=== PATIENT | female | born 1970 | race American Indian/Alaskan Native ===

== ENCOUNTER 2021-02-08 11:22 | Inpatient (IN) | payer BC ==
[2021-02-08] MEDS ORDERED: METOCLOPRAMIDE 10 MG/2 ML INJ IV ONE ×2 (11:51→16:00)
[2021-02-08] MEDS ORDERED: SODIUM CHLORIDE 0.9% 500 ML 500 ML IV ONE ×3 (11:51→20:58)
--- NOTE | 2021-02-08 11:53 | Emergency Department Report ---
HPI - General Chief Complaint: Nausea/Vomiting/Diarrhea Time Seen by Provider: 02/08/21 11:31 - HPI HPI: 50-year-old female with history of hypertension on losartan and DM2 on Metformin presents complaining of 2 days of symptoms including intermittent global headache with associated lightheadedness and nausea as well as shortness of breath with exertion. Patient states that for the last 2 days she has been having headaches which come on gradually over the course of a few hours and then gradually disappear. She describes the headache as global pressure-like. She denies any room spinning dizziness. However she states that she feels lightheaded and nauseated and had 2 episodes of vomiting last night. Although she has not vomited today, she says she has not had much to eat or drink today because she fears vomiting and feels nauseated. Over the same period of time she has noticed that she feels more short of breath with exertion. She denies any associated chest pain, cough, abdominal pain, dysuria, discharge, vaginal bleeding, back pain, vision change, neck pain, fever/chills, or any other associated symptoms. She has not checked her blood sugar today. She states that for the past month or so she has had elevated blood pressure but cannot quantify. There are no known aggravating or alleviating factors. She did take her medications today. She is fully vaccinated against COVID-19. ED Past Medical Hx - Past Medical History Previous Medical History?: No Hx Hypertension: Yes Hx Diabetes: Yes - Surgical History Past Surgical History?: No ED Review of Systems ROS: Stated complaint: HEADACHE,NAUSEA,DIZZY Other details as noted in HPI Constitutional: other (tiredness, lightheadedness). denies: chills, fever Eyes: denies: eye pain, vision change Respiratory: SOB with exertion. denies: cough Cardiovascular: denies: chest pain, palpitations Gastrointestinal: nausea, vomiting. denies: abdominal pain, diarrhea, melena, hematochezia Genitourinary: denies: dysuria, frequency, hematuria, discharge Musculoskeletal: denies: back pain, joint swelling Skin: denies: rash, lesions Neurological: headache. denies: weakness, numbness, paresthesias, abnormal gait, vertigo Psychiatric: denies: anxiety, depression Hematological/Lymphatic: denies: easy bleeding Physical Exam - Physical Exam Vital Signs: Vital Signs 02/08/21 11:25 Temperature 98.5 F Pulse Rate 75 Respiratory 16 Rate Blood Pressure 178/85 [Left] O2 Sat by Pulse 98 Oximetry Physical Exam: GENERAL: Well developed and well nourished. No acute distress HEAD: Normocephalic. No obvious signs of trauma. ENT: Slightly dry mucous membranes. EYES: Extraocular movements are intact. Pupils are equal round and reactive to light bilaterally NECK: Supple. Full ROM is intact. Trachea is midline. LUNGS: Nonlabored breathing. Equal chest rise bilaterally. Clear to auscultation bilaterally. CARDIOVASCULAR: Regular rate and rhythm. No murmurs or rubs. VASCULAR: Cap refill < 2 seconds. 2+ pitting edema of the bilateral lower extremities. ABDOMEN: Abdomen is soft and nondistended. There is no significant tenderness, guarding or rebound. SKIN: Skin is warm and dry NEURO: Patient is awake, alert, and oriented. food adviser II-XII grossly intact. No focal deficits. Normal motor and sensory exam throughout. Normal speech. MUSCULOSKELETAL: No obvious deformities. No significant tenderness. Normal ROM throughout. ED Course Vital Signs 02/08/21 11:25 Temperature 98.5 F Pulse Rate 75 Respiratory 16 Rate Blood Pressure 178/85 [Left] O2 Sat by Pulse 98 Oximetry ED Medical Decision Making - Lab Data Result diagrams: 02/08/21 13:09 02/08/21 13:09 Lab Results 02/08/21 02/08/21 02/08/21 Range/Units 11:51 11:56 13:09 WBC 12.1 H (4.5-11.0) K/mm3 RBC 2.52 L (3.65-5.03) M/mm3 Hgb 7.1 L (10.1-14.3) gm/dl Hct 20.0 L (30.3-42.9) % MCV 79 (79-97) fl MCH 28 (28-32) pg MCHC 36 H (30-34) % RDW 18.0 H (13.2-15.2) % Plt Count 499 H (140-440) K/mm3 Lymph % (Auto) 29.9 (13.4-35.0) % [place] % (Auto) 8.6 H (0.0-7.3) % Eos % (Auto) 1.4 (0.0-4.3) % Baso % (Auto) Temporary Staff Accountant Lymph # (Auto) 3.5 (1.2-5.4) K/mm3 [place] # (Auto) 1.0 H (0.0-0.8) K/mm3 Eos # (Auto) 0.2 (0.0-0.4) K/mm3 Baso # (Auto) 0.0 (0.0-0.1) K/mm3 Seg Neutrophils % 59.7 (40.0-70.0) % Seg Neutrophils # 7.1 (1.8-7.7) K/mm3 PT (12.2-14.9) Sec. INR (0.87-1.13) APTT (24.2-36.6) Sec. Sodium (137-145) mmol/L Potassium (3.6-5.0) mmol/L Chloride (98-107) mmol/L Carbon Dioxide (22-30) mmol/L Anion Gap mmol/L BUN (7-17) mg/dL Creatinine (0.6-1.2) mg/dL Estimated GFR ml/min BUN/Creatinine Ratio % Glucose (65-100) mg/dL POC Glucose 110 H (70-105) mg/dL Calcium (8.4-10.2) mg/dL Magnesium (1.7-2.3) mg/dL Total Bilirubin (0.1-1.2) mg/dL Direct Bilirubin (0-0.2) mg/dL Indirect Bilirubin mg/dL AST (5-40) units/L ALT (7-56) units/L Alkaline Phosphatase (35-129) units/L Troponin T (0.00-0.029) ng/mL NT-Pro-B Natriuret Pep (0-900) pg/mL Total Protein (6.3-8.2) g/dL Albumin (3.9-5) g/dL Albumin/Globulin Ratio % HCG, Qual (Negative) Urine Color Straw (Yellow) Urine Turbidity Clear (Clear) Urine pH 7.0 (5.0-7.0) Ur Specific [place] 1.008 (1.003-1.030) Urine Protein 100 mg/dl (Negative) mg/dL Urine Glucose (UA) Neg (Negative) mg/dL Urine Ketones Neg (Negative) mg/dL Urine Blood Mod (Negative) Urine Nitrite Neg (Negative) Urine Bilirubin Neg (Negative) Urine Urobilinogen < 2.0 (<2.0) mg/dL Ur Leukocyte Esterase Tr (Negative) Urine WBC (Auto) 24.0 H (0.0-6.0) /HPF Urine RBC (Auto) 1.0 (0.0-6.0) /HPF U Epithel Cells (Auto) < 1.0 (0-13.0) /HPF Blood Type Crossmatch 02/08/21 02/08/21 02/08/21 Range/Units 13:09 13:09 13:09 WBC (4.5-11.0) K/mm3 RBC (3.65-5.03) M/mm3 Hgb (10.1-14.3) gm/dl Hct (30.3-42.9) % MCV (79-97) fl MCH (28-32) pg MCHC (30-34) % RDW (13.2-15.2) % Plt Count (140-440) K/mm3 Lymph % (Auto) (13.4-35.0) % [place] % (Auto) (0.0-7.3) % Eos % (Auto) (0.0-4.3) % Baso % (Auto) Lymph # (Auto) (1.2-5.4) K/mm3 [place] # (Auto) (0.0-0.8) K/mm3 Eos # (Auto) (0.0-0.4) K/mm3 Baso # (Auto) (0.0-0.1) K/mm3 Seg Neutrophils % (40.0-70.0) % Seg Neutrophils # (1.8-7.7) K/mm3 PT 12.8 (12.2-14.9) Sec. INR 0.91 (0.87-1.13) APTT 25.9 (24.2-36.6) Sec. Sodium 138 (137-145) mmol/L Potassium 4.1 (3.6-5.0) mmol/L Chloride 101.4 (98-107) mmol/L Carbon Dioxide 23 (22-30) mmol/L Anion Gap 18 mmol/L BUN 11 (7-17) mg/dL Creatinine 0.7 (0.6-1.2) mg/dL Estimated GFR > 60 ml/min BUN/Creatinine Ratio 16 % Glucose 85 (65-100) mg/dL POC Glucose (70-105) mg/dL Calcium 9.5 (8.4-10.2) mg/dL Magnesium 2.00 (1.7-2.3) mg/dL Total Bilirubin 0.50 (0.1-1.2) mg/dL Direct Bilirubin < 0.2 (0-0.2) mg/dL Indirect Bilirubin 0.3 mg/dL AST 25 (5-40) units/L ALT 19 (7-56) units/L Alkaline Phosphatase 56 (35-129) units/L Troponin T < 0.010 (0.00-0.029) ng/mL NT-Pro-B Natriuret Pep 146.6 (0-900) pg/mL Total Protein 8.8 H (6.3-8.2) g/dL Albumin 3.6 L (3.9-5) g/dL Albumin/Globulin Ratio 0.7 % HCG, Qual Negative (Negative) Urine Color (Yellow) Urine Turbidity (Clear) Urine pH (5.0-7.0) Ur Specific [place] (1.003-1.030) Urine Protein (Negative) mg/dL Urine Glucose (UA) (Negative) mg/dL Urine Ketones (Negative) mg/dL Urine Blood (Negative) Urine Nitrite (Negative) Urine Bilirubin (Negative) Urine Urobilinogen (<2.0) mg/dL Ur Leukocyte Esterase (Negative) Urine WBC (Auto) (0.0-6.0) /HPF Urine RBC (Auto) (0.0-6.0) /HPF U Epithel Cells (Auto) (0-13.0) /HPF Blood Type Crossmatch 02/08/21 02/08/21 Range/Units 14:55 14:55 WBC (4.5-11.0) K/mm3 RBC (3.65-5.03) M/mm3 Hgb (10.1-14.3) gm/dl Hct (30.3-42.9) % MCV (79-97) fl MCH (28-32) pg MCHC (30-34) % RDW (13.2-15.2) % Plt Count (140-440) K/mm3 Lymph % (Auto) (13.4-35.0) % [place] % (Auto) (0.0-7.3) % Eos % (Auto) (0.0-4.3) % Baso % (Auto) Lymph # (Auto) (1.2-5.4) K/mm3 [place] # (Auto) (0.0-0.8) K/mm3 Eos # (Auto) (0.0-0.4) K/mm3 Baso # (Auto) (0.0-0.1) K/mm3 Seg Neutrophils % (40.0-70.0) % Seg Neutrophils # (1.8-7.7) K/mm3 PT (12.2-14.9) Sec. INR (0.87-1.13) APTT (24.2-36.6) Sec. Sodium (137-145) mmol/L Potassium (3.6-5.0) mmol/L Chloride (98-107) mmol/L Carbon Dioxide (22-30) mmol/L Anion Gap mmol/L BUN (7-17) mg/dL Creatinine (0.6-1.2) mg/dL Estimated GFR ml/min BUN/Creatinine Ratio % Glucose (65-100) mg/dL POC Glucose (70-105) mg/dL Calcium (8.4-10.2) mg/dL Magnesium (1.7-2.3) mg/dL Total Bilirubin (0.1-1.2) mg/dL Direct Bilirubin (0-0.2) mg/dL Indirect Bilirubin mg/dL AST (5-40) units/L ALT (7-56) units/L Alkaline Phosphatase (35-129) units/L Troponin T < 0.010 (0.00-0.029) ng/mL NT-Pro-B Natriuret Pep (0-900) pg/mL Total Protein (6.3-8.2) g/dL Albumin (3.9-5) g/dL Albumin/Globulin Ratio % HCG, Qual (Negative) Urine Color (Yellow) Urine Turbidity (Clear) Urine pH (5.0-7.0) Ur Specific [place] (1.003-1.030) Urine Protein (Negative) mg/dL Urine Glucose (UA) (Negative) mg/dL Urine Ketones (Negative) mg/dL Urine Blood (Negative) Urine Nitrite (Negative) Urine Bilirubin (Negative) Urine Urobilinogen (<2.0) mg/dL Ur Leukocyte Esterase (Negative) Urine WBC (Auto) (0.0-6.0) /HPF Urine RBC (Auto) (0.0-6.0) /HPF U Epithel Cells (Auto) (0-13.0) /HPF Blood Type B POSITIVE Crossmatch See Detail - EKG Data -: EKG Interpreted by Sd - EKG Data 02/08/21 19:36 Normal sinus rhythm. Normal axis. Normal interval. No ectopy. LVH associated changes. No significant ST segment or T wave abnormalities. - Medical Decision Making 50-year-old female with history of hypertension diabetes presents complaining of 2 days of intermittent global headache as well as lightheadedness, nausea with occasional vomiting. Headache has been gradual in onset and there are no red flag signs/symptoms. She is also had shortness of breath with exertion. Initial assessment she is afebrile and with normal vitals with the exception of elevated blood pressure of 178/85. Physical examination reveals dry mucous membranes. She has a nonfocal neurologic exam. Lungs are clear to auscultation. Heart sounds are normal. She has 2+ pitting edema of the bilateral lower extremities. She is vaccinated against COVID-19. The patient reports that she feels very nauseated right now and has a headache. Given that the patient is female, has diabetes, and is presenting with atypical symptoms including shortness of breath with exertion and lightheadedness, we will perform ACS work-up with full set of labs, EKG, and chest x-ray. In addition, given the that the patient has a headache with associated nausea/vomiting which is new and not typical for the patient we will perform CT of the head to assess for evidence of intracranial hemorrhage, mass, infarct, or any other intra cranial abnormalities. We will plan to give 1 L of IV fluids, Reglan, and then Toradol if CT of the head is negative. We will continue to monitor the patient's blood pressure and determine need for antihypertensives should her blood pressure not decreased with relief of her symptoms. Chest x-ray is clear. CT of the head reveals no acute abnormalities. Labs reveal several abnormalities including white blood cell count of 12.1, but notably with hemoglobin of 7.1. Platelets are elevated at 499. Given that all cell lines are elevated except for hemoglobin and the patient has signs of dehydration, she may be hemoconcentrated with true hemoglobin being lower than this value. We will not give Toradol given we do not currently know the source of bleeding. Kidney function is normal and there are no significant electrolyte abnormalities. Troponin is negative. BNP is negative. Urinalysis does show evidence of urinary tract infection. Urine culture has been sent. I have ordered 1 dose of IV ceftriaxone. When I went to reevaluate the patient at 1:45 PM she states that her symptoms are unchanged but she refused the Reglan. She states that she does not like taking medications. When I discussed the results of her labs showing severe anemia she denies any history of anemia but states that that would explain why she has felt extremely tired for the past few days. When asked about possible sources of bleeding including melena/hematochezia, the patient denies but states that she did have some dark stool 1 time approximately week ago. Rectal exam was performed with nurse present as a hamper maker machine and revealed rectal vault with out significant stool present but with enough to perform Hemoccult which was negative. Given that I feel the patient's symptoms represent symptomatic anemia, I have ordered 1 unit of PRBCs. The patient states that because her symptoms have continued she will now accept the medication. I have ordered Reglan and Benadryl. The patient 's blood pressure remains significantly elevated in the 180s systolic. I have ordered IV labetalol. The patient's blood pressure did not improve significantly after labetalol and therefore I have ordered further IV hydralazine. She has intractable hypertension symptoms which could represent hypertensive emergency. I discussed with the patient the need for admission for further work-up and management given that she has several ongoing medical issues which require further attention. The patient expressed understanding agreement with this plan of care. 4:58 PM I spoke with Dr. Rahman, the on-call hospitalist regarding the case. He accepts the patient for admission and will assume care. Critical Care Time: Yes Critical care time in (mins) excluding proc time.: 40 Critical care attestation.: If time is entered above; I have spent that time in minutes in the direct care of this critically ill patient, excluding procedure time. Critical care time was spent in the evaluation/assessment, work-up, and management of symptomatic anemia requiring transfusion of blood, hypertensive emergency requiring multiple IV antihypertensives, as well as multiple reevaluations and reassessments. ED Disposition Clinical Impression: Symptomatic anemia, Hypertensive emergency, Intractable headache, Nausea & vomiting, Dehydration, Urinary tract infection Disposition: 09 ADMITTED INPATIENT Is pt being admited?: Yes Condition: Fair HEART Score - HEART Score History: Moderately suspicious EKG: Non-specific Age: 45-65 Risk factors: 1-2 risk factors Troponin: < normal limit HEART Score: 4
--- NOTE | 2021-02-08 12:26 | XRay Report ---
CHEST 2 VIEWS INDICATION / CLINICAL INFORMATION: SOB. COMPARISON: None available. FINDINGS: SUPPORT DEVICES: None. HEART / MEDIASTINUM: Heart is upper normal size. LUNGS / PLEURA: No significant pulmonary or pleural abnormality. No pneumothorax. ADDITIONAL FINDINGS: No significant additional findings. IMPRESSION: 1. No acute findings. Signer Name: Orville Gutierrez MD Signed: 02/08/2021 12:21 PM Workstation Name: [id number]
--- NOTE | 2021-02-08 13:01 | Cat Scan Report ---
CT head/brain wo con INDICATION: New headache with nausea. TECHNIQUE: All CT scans at this location are performed using CT dose reduction for ALARA by means of automated e xposure control. COMPARISON: None available. FINDINGS: There is no evidence of hemorrhage, hydrocephalus, brain edema, or mass effect/mass lesion. There is overall normal brain formation and brain volume for the patient's age. Ventricular and cisternal/sulc al size is normal for age. The included paranasal sinuses and mastoid air cells are clear. The orbits appear unremarkable. IMPRESSION: 1. No acute intracranial abnormality. Signer Name: Abhijeet Corral MD Signed: 02/08/2021 12:57 PM Workstation Name: [id number]
[2021-02-08 13:12] LABS: Bilirubin,Urine NEG (Negative); Color,Urine Straw (Yellow); Urobilinogen,Urine < 2.0 mg/dL (<2.0)
[2021-02-08 13:33] LABS: Blood,Urine MOD (Negative)
[2021-02-08 13:49] LABS: Hemoglobin 7.1 gm/dl (10.1-14.3); Mean Corpuscular HGB Conc 36 % (30-34); Mean Corpuscular Volume 79 fl (79-97); Platelet Count 499 K/mm3 (140-440); Red Blood Count 2.52 M/mm3 (3.65-5.03)
[2021-02-08 13:55] LABS: Eosinophils # (Auto) 0.2 K/mm3 (0.0-0.4); Eosinophils % (Auto) 1.4 % (0.0-4.3); Lymphocytes # (Auto) 3.5 K/mm3 (1.2-5.4); Lymphocytes % (Auto) 29.9 % (13.4-35.0); Monocytes % (Auto) 8.6 % (0.0-7.3)
[2021-02-08 13:59] LABS: INR 0.91 (0.87-1.13)
[2021-02-08 14:00] LABS: Partial Thromboplastin Time 25.9 Sec. (24.2-36.6)
[2021-02-08] MEDS ORDERED: cefTRIAXone/NS 1 GM/50 ML 1 GM/50 ML BAG IV ONE (14:13)
[2021-02-08 14:15] LABS: Alanine Aminotransferase 19 units/L (7-56); Albumin 3.6 g/dL (3.9-5); Blood Urea Nitrogen 11 mg/dL (7-17); Calcium 9.5 mg/dL (8.4-10.2); Hemolysis Index 50
[2021-02-08 14:20] LABS: BUN/Creatinine Ratio 16; Bilirubin,Direct < 0.2 mg/dL (0-0.2)
[2021-02-08] MEDS ORDERED: hydrALAZINE 20 MG/1 ML INJ IV ONE (16:00)
[2021-02-08] MEDS ORDERED: diphenhydrAMINE 50 MG/ML VIAL IV ONE (16:00)
[2021-02-08] MEDS ORDERED: METOCLOPRAMIDE 10 MG/2 ML INJ IV PRN (17:13)
[2021-02-08] MEDS ORDERED: MORPHINE 2 MG/1 ML INJ IV PRN (17:13)
[2021-02-08] MEDS ORDERED: ACETAMINOPHEN 325 MG TAB PO PRN ×2 (17:13→20:57)
[2021-02-08] MEDS ORDERED: ONDANSETRON 4 MG/2 ML INJ IV PRN ×2 (17:13→20:57)
[2021-02-08] MEDS ORDERED: HYDROmorphone 1 MG/1 ML INJ IV PRN (17:13)
--- NOTE | 2021-02-08 17:13 | History and Physical Report ---
History of Present Illness Date of examination: 02/08/21 Date of admission: 02/08/2021 Chief complaint: Feeling weak and lightheaded 1 week History of present illness: 50-year-old female with history of hypertension on losartan and DM2 on Metformin presents complaining of 2 days of symptoms including intermittent global headache with associated lightheadedness and nausea as well as shortness of breath with exertion. Patient states that for the last 2 days she has been having headaches which come on gradually over the course of a few hours and then gradually disappear. She describes the headache as global pressure-like. She denies any room spinning dizziness. However she states that she feels lightheaded and nauseated and had 2 episodes of vomiting last night. Although she has not vomited today, she says she has not had much to eat or drink today because she fears vomiting and feels nauseated. Over the same period of time she has noticed that she feels more short of breath with exertion. She denies any associated chest pain, cough, abdominal pain, dysuria, discharge, vaginal bleeding, back pain, vision change, neck pain, fever/chills, or any other associated symptoms. She has not checked her blood sugar today. She states that for the past month or so she has had elevated blood pressure but cannot quantify. There are no known aggravating or alleviating factors. She did take her medications today. She is fully vaccinated against COVID-19. - Past Medical History Previous Medical History?: No - Surgical History Past Surgical History?: No Review of Systems ROS: Constitutional feels weak and lightheaded HEENT no sore throat no post nasal drip no diplopia Neck no neck stiffness no lymph gland enlargement Chest and lungs no shortness of breath cough or wheezing CVS shortness of breath on exertion GI no nausea no vomiting no diarrhea Genitourinary system no dysuria no flank pain Musculoskeletal system no muscle pains no joint pains ASPHALT BLENDER no syncope no seizures Skin no rash no itching Psychiatric no depression no homicidal or suicidal tendencies Hematologic no lymphedema or bruising Endocrine no polydipsia no polyuria no cold intolerance no heat intolerance Medications and Allergies Allergies Allergy/AdvReac Type Severity Reaction Status Date / Time No Known Allergies Allergy Verified 02/09/21 00:17 Home Medications Medication Instructions Recorded Confirmed Last Taken Type Losartan [Cozaar] 100 mg PO QDAY 02/09/21 02/09/2121 09:00 History 100 Exam - Constitutional Vitals: Temp Pulse Resp BP Pulse Ox 98.4 F 67 12 183/90 99 02/08/21 11:54 02/08/21 13:13 02/08/21 13:13 02/08/21 13:13 02/08/21 13:13 General appearance: Present: no acute distress, well-nourished - EENT Eyes: Present: PERRL ENT: hearing intact, clear oral mucosa, other (Pale mucous membranes) - Neck Neck: Present: supple, normal ROM - Respiratory Respiratory effort: normal Respiratory: bilateral: CTA - Cardiovascular Heart rate: 78 Rhythm: regular Heart Sounds: Present: S1 & S2. Absent: rub, click - Extremities Extremities: pulses symmetrical, No edema Peripheral Pulses: within normal limits - Abdominal General gastrointestinal: Present: soft, non-tender, non-distended, normal bowel sounds Female genitourinary: Present: normal - Integumentary Integumentary: Present: clear, warm, dry - Musculoskeletal Musculoskeletal: gait normal, strength equal bilaterally - Psychiatric Psychiatric: appropriate mood/affect, intact judgment & insight - Neurologic Neurologic: CNII-XII intact, moves all extremities HEART Score - HEART Score Troponin: Troponin T < 0.010 ng/mL (0.00-0.029) 02/08/21 14:55 Results - Labs CBC & Chem 7: 02/09/21 04:58 02/09/21 04:58 Labs: Laboratory Last Values WBC 12.1 K/mm3 (4.5-11.0) H 02/08/21 13:09 RBC 2.52 M/mm3 (3.65-5.03) L 02/08/21 13:09 Hgb 7.1 gm/dl (10.1-14.3) L 02/08/21 13:09 Hct 20.0 % (30.3-42.9) L 02/08/21 13:09 MCV 79 fl (79-97) 02/08/21 13:09 MCH 28 pg (28-32) 02/08/21 13:09 MCHC 36 % (30-34) H 02/08/21 13:09 RDW 18.0 % (13.2-15.2) H 02/08/21 13:09 Plt Count 499 K/mm3 (140-440) H 02/08/21 13:09 Lymph % (Auto) 29.9 % (13.4-35.0) 02/08/21 13:09 [place] % (Auto) 8.6 % (0.0-7.3) H 02/08/21 13:09 Eos % (Auto) 1.4 % (0.0-4.3) 02/08/21 13:09 Baso % (Auto) Pr Specialist 02/08/21 13:09 Lymph # (Auto) 3.5 K/mm3 (1.2-5.4) 02/08/21 13:09 [place] # (Auto) 1.0 K/mm3 (0.0-0.8) H 02/08/21 13:09 Eos # (Auto) 0.2 K/mm3 (0.0-0.4) 02/08/21 13:09 Baso # (Auto) 0.0 K/mm3 (0.0-0.1) 02/08/21 13:09 Seg Neutrophils % 59.7 % (40.0-70.0) 02/08/21 13:09 Seg Neutrophils # 7.1 K/mm3 (1.8-7.7) 02/08/21 13:09 PT 12.8 Sec. (12.2-14.9) 02/08/21 13:09 INR 0.91 (0.87-1.13) 02/08/21 13:09 APTT 25.9 Sec. (24.2-36.6) 02/08/21 13:09 Sodium 138 mmol/L (137-145) 02/08/21 13:09 Potassium 4.1 mmol/L (3.6-5.0) 02/08/21 13:09 Chloride 101.4 mmol/L (98-107) 02/08/21 13:09 Carbon Dioxide 23 mmol/L (22-30) 02/08/21 13:09 Anion Gap 18 mmol/L 02/08/21 13:09 BUN 11 mg/dL (7-17) 02/08/21 13:09 Creatinine 0.7 mg/dL (0.6-1.2) 02/08/21 13:09 Estimated GFR > 60 ml/min 02/08/21 13:09 BUN/Creatinine Ratio 16 % 02/08/21 13:09 Glucose 85 mg/dL (65-100) 02/08/21 13:09 POC Glucose 110 mg/dL (70-105) H 02/08/21 11:51 Calcium 9.5 mg/dL (8.4-10.2) 02/08/21 13:09 Magnesium 2.00 mg/dL (1.7-2.3) 02/08/21 13:09 Total Bilirubin 0.50 mg/dL (0.1-1.2) 02/08/21 13:09 Direct Bilirubin < 0.2 mg/dL (0-0.2) 02/08/21 13:09 Indirect Bilirubin 0.3 mg/dL 02/08/21 13:09 AST 25 units/L (5-40) 02/08/21 13:09 ALT 19 units/L (7-56) 02/08/21 13:09 Alkaline Phosphatase 56 units/L (35-129) 02/08/21 13:09 Troponin T < 0.010 ng/mL (0.00-0.029) 02/08/21 14:55 NT-Pro-B Natriuret Pep 146.6 pg/mL (0-900) 02/08/21 13:09 Total Protein 8.8 g/dL (6.3-8.2) H 02/08/21 13:09 Albumin 3.6 g/dL (3.9-5) L 02/08/21 13:09 Albumin/Globulin Ratio 0.7 % 02/08/21 13:09 HCG, Qual Negative (Negative) 02/08/21 13:09 Urine Color Straw (Yellow) 02/08/21 11:56 Urine Turbidity Clear (Clear) 02/08/21 11:56 Urine pH 7.0 (5.0-7.0) 02/08/21 11:56 Ur Specific [place] 1.008 (1.003-1.030) 02/08/21 11:56 Urine Protein 100 mg/dl mg/dL (Negative) 02/08/21 11:56 Urine Glucose (UA) Neg mg/dL (Negative) 02/08/21 11:56 Urine Ketones Neg mg/dL (Negative) 02/08/21 11:56 Urine Blood Mod (Negative) 02/08/21 11:56 Urine Nitrite Neg (Negative) 02/08/21 11:56 Urine Bilirubin Neg (Negative) 02/08/21 11:56 Urine Urobilinogen < 2.0 mg/dL (<2.0) 02/08/21 11:56 Ur Leukocyte Esterase Tr (Negative) 02/08/21 11:56 Urine WBC (Auto) 24.0 /HPF (0.0-6.0) H 02/08/21 11:56 Urine RBC (Auto) 1.0 /HPF (0.0-6.0) 02/08/21 11:56 U Epithel Cells (Auto) < 1.0 /HPF (0-13.0) 02/08/21 11:56 Short CBC 02/08/21 02/09/21 Range/Units 13:09 04:58 WBC 12.1 H 9.9 (4.5-11.0) K/mm3 Hgb 7.1 L 14.0 D (10.1-14.3) gm/dl Hct 20.0 L 41.3 D (30.3-42.9) % Plt Count 499 H 290 (140-440) K/mm3 BMP 02/08/21 02/09/21 13:09 04:58 Sodium 138 137 Potassium 4.1 4.0 Chloride 101.4 101.0 Carbon Dioxide 23 23 BUN 11 17 Creatinine 0.7 0.8 Glucose 85 121 H Calcium 9.5 8.9 Cardiac Enzymes 02/08/21 02/08/21 Range/Units 13:09 14:55 Troponin T < 0.010 < 0.010 (0.00-0.029) ng/mL Liver Function 02/08/21 02/09/21 Range/Units 13:09 04:58 Total Bilirubin 0.50 0.30 (0.1-1.2) mg/dL Direct Bilirubin < 0.2 (0-0.2) mg/dL AST 25 21 (5-40) units/L ALT 19 17 (7-56) units/L Alkaline Phosphatase 56 54 (35-129) units/L Albumin 3.6 L 3.1 L (3.9-5) g/dL Urine 02/08/21 Range/Units 11:56 Urine Color Straw (Yellow) Urine pH 7.0 (5.0-7.0) Ur Specific [place] 1.008 (1.003-1.030) Urine Protein 100 mg/dl (Negative) mg/dL Urine Glucose (UA) Neg (Negative) mg/dL Microbiology: Microbiology 02/08/21 14:45 Stool Stool Occult Blood (KRISTY) - Final - Imaging and Cardiology EKG: report reviewed Imaging and Cardiology: Chest x-ray No acute findings Head CT no acute findings Assessment and Plan Advance Directives: Yes (Full code) VTE prophylaxis?: Chemical Plan of care discussed with patient/family: Yes - Patient Problems (1) Symptomatic anemia Current Visit: Yes Status: Acute Plan to address problem: Patient will transfuse 1 to 2 units of packed red blood cells Etiology of anemia unclear Patient has no menorrhagia Stopped having menstrual periods since the beginning of the year Anemia work-up (2) Hypertensive emergency Current Visit: Yes Status: Acute Plan to address problem: Systolic blood pressure very high IV hydralazine as needed Continue home antihypertensives and adjust medications as necessary (3) Urinary tract infection Current Visit: Yes Status: Acute Qualifiers: Urinary tract infection type: acute cystitis Plan to address problem: On IV Rocephin pending cultures (4) DVT prophylaxis Current Visit: Yes Status: Acute Plan to address problem: On heparin and GI prophylaxis
[2021-02-08] MEDS ORDERED: SODIUM CHLORIDE 0.9% 1000 ML 1,000 ML IV SCH (17:15)
[2021-02-08] MEDS ORDERED: BUTALB/ACETAMINOPHEN/CAFFEINE TAB PO ONE (17:18)
[2021-02-08] MEDS ORDERED: diphenhydrAMINE 50 MG/ML VIAL ONE (18:11)
[2021-02-08] MEDS: oxyCODONE /ACETAMINOPHEN 5-325MG TAB PO PRN (18:20)
[2021-02-09] MEDS: oxyCODONE /ACETAMINOPHEN 5-325MG TAB PO PRN ×2 (00:25→13:49)
[2021-02-09 06:25] LABS: Alanine Aminotransferase 17 units/L (7-56); Albumin 3.1 g/dL (3.9-5); BUN/Creatinine Ratio 21; Blood Urea Nitrogen 17 mg/dL (7-17); Calcium 8.9 mg/dL (8.4-10.2); Hemolysis Index 60
[2021-02-09 06:33] LABS: Basophils # (Auto) 0.1 K/mm3 (0.0-0.1); Eosinophils # (Auto) 0.2 K/mm3 (0.0-0.4); Eosinophils % (Auto) 1.8 % (0.0-4.3); Lymphocytes # (Auto) 2.9 K/mm3 (1.2-5.4); Lymphocytes % (Auto) 29.1 % (13.4-35.0); Mean Corpuscular HGB Conc 34 % (30-34); Mean Corpuscular Volume 80 fl (79-97); Monocytes # (Auto) 1.1 K/mm3 (0.0-0.8); Monocytes % (Auto) 11.2 % (0.0-7.3); Platelet Count 290 K/mm3 (140-440); Red Blood Count 5.16 M/mm3 (3.65-5.03); Red Cell Distribution Width 18.3 % (13.2-15.2)
[2021-02-09 06:36] LABS: Hematocrit 41.3 % (30.3-42.9)
[2021-02-09] MEDS: cefTRIAXone/NS 1 GM/50 ML 1 GM/50 ML BAG IV SCH (07:56)
[2021-02-09 08:28] LABS: % Iron Saturation 12.58 %
[2021-02-09] MEDS: LOSARTAN 50 MG TAB PO SCH (09:30)
[2021-02-09] MEDS ORDERED: hydrALAZINE 20 MG/1 ML INJ IV PRN (12:43)
--- NOTE | 2021-02-09 12:51 | Discharge Summary ---
Providers - Providers Date of Admission: 02/08/21 17:13 Date of discharge: 02/10/21 Attending physician: SHEREE MIRANDA Hospitalization Reason for admission: Generalized weakness and dizziness/symptomatic anemia Condition: Fair Pertinent studies: CT head without contrast; no acute abnormality Repeat CT head[headache with hypertensive emergency]; no acute abnormality Procedures: 2 unit blood transfusion Hospital course: 50-year-old obese female patient with significant past medical history of hypertension type 2 diabetes mellitus on Metformin noncompliant with medications was admitted through emergency room with generalized weakness and lightheadedness of 1 week duration Patient was initially evaluated in the emergency room, CT head without contrast did not show any acute abnormalities, however blood work-up is consistent with anemia with hemoglobin of 7.1, patient received 2 units of PRBC infusion with significant provement of hemoglobin to 14.0, stool for occult blood was negative Patient gives history of menorrhagia, no active bleeding at this point Patient also had uncontrolled blood pressures with hypertensive emergency blood pressures ranging in 200s systolic managed with multiple antihypertensives and blood pressure was closely monitored doses were adjusted as needed patient also had intermittent headache in the setting of hypertensive emergency CT head was done no acute abnormalities noted., Patient strongly counseled to the importance of adhering to the treatment plan, diet modification and follow-up visits For verbalized understanding. 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 advised to see primary care physician for further evaluation and management as needed Patient verbalized understanding, stable at discharge Discharge diagnosis; --Hypertensive emergency Current Visit: Yes Status: Acute Blood pressures reasonable control Continue multiple antihypertensives --Chest pain; resolved Current Visit: Yes Status: Acute Probably secondary to uncontrolled hypertension Set of cardiac enzymes, morphine EKG, metoprolol EKG; no acute ST-T changes LVH -- Symptomatic anemia Current Visit: Yes Status: Acute Patient received 2 units of PRBC transfusion Significantly improved Hb7.1 - 14 today Stool for occult blood negative advised follow-up private STRAW BALER --History of menorrhagia; No active bleeding at this point Advised to follow private STRAW BALER for further evaluation Rule out STRAW BALER causes of anemia --Urinary tract infection Current Visit: Yes Status: Acute On IV Rocephin pending cultures Supportive care, follow cultures --Morbid obesity BMI 51.6 Current Visit: Yes Status: Acute Patient strongly advised diet modification exercise as tolerated and weight reduction, When medically stable Patient also need outpatient sleep study with pulmonary upon discharge Patient is stable at discharge Disposition: 01 HOME / SELF CARE / HOMELESS Final Discharge Diagnosis (Prints w/discharge instructions): Hypertensive emergency improved. Chest pain resolved. Anemia requiring transfusion. Urinary tract infection. Sinusitis. Morbid obesity Time spent for discharge: 35 min Core Measure Documentation - Palliative Care Palliative Care/ Comfort Measures: Not Applicable - Core Measures Any of the following diagnoses?: none Exam - Constitutional Vitals: Temp Pulse Resp BP Pulse Ox 98.1 F 62 20 176/79 97 02/09/21 11:40 02/09/21 11:40 02/09/21 11:40 02/09/21 11:40 02/09/21 11:40 General appearance: Present: no acute distress, well-nourished - EENT Eyes: Present: PERRL, EOM intact - Neck Neck: Present: supple, normal ROM - Respiratory Respiratory effort: normal Respiratory: bilateral: diminished, negative: rales, rhonchi, wheezing - Cardiovascular Rhythm: regular Heart Sounds: Present: S1 & S2 - Extremities Extremities: no ischemia, pulses intact - Abdominal General gastrointestinal: Present: soft, non-tender, non-distended, normal bowel sounds - Integumentary Integumentary: Present: clear, warm - Musculoskeletal Musculoskeletal: strength equal bilaterally - Psychiatric Psychiatric: appropriate mood/affect, cooperative - Neurologic Neurologic: CNII-XII intact, moves all extremities Plan Activity: no restrictions Diet: low salt Additional Instructions: Advised to comply with medications diet and follow-up visits. Advised to monitor blood pressures at home 2-3 times a day and maintain a log. Advised to follow primary care physician in 3 to 5 days. If you have worsening symptoms contact MD or go to the nearest emergency room. Advised 4 days work excuse 02/11/2021 - 02/14/2021. See private STRAW BALER in 1 to 2 weeks for further evaluation of your anemia Follow up with: KEVIN BARRON [Other] - 7 Days CECILIA SAPP MD [Staff Physician] - 14 Days (Anemia, rule out GI causes of anemia) Forms: Work/School Release Form Prescriptions: Losartan [Cozaar] 100 mg PO QDAY #30 tablet hydroCHLOROthiazide [HCTZ] 25 mg PO QDAY #30 tablet Hydralazine HCl 50 mg PO Q8H #90 tablet levoFLOXacin [Levaquin] 750 mg PO QDAY #7 tablet Metoprolol [Lopressor TAB] 25 mg PO BID #60 tablet oxyCODONE /ACETAMINOPHEN [Percocet 5/325 mg] 1 tab PO QHS PRN #10 tablet PRN Reason: Pain, Moderate (4-6) NIFEdipine XL [Procardia Xl] 30 mg PO Q12HR #60 tablet Cetirizine HCl [ZyrTEC 10mg rapdis] 10 mg PO DAILY PRN #14 tab.rapdis PRN Reason: Congestion
[2021-02-09] MEDS ORDERED: hydrALAZINE 20 MG/1 ML INJ IV ONE (13:30)
--- NOTE | 2021-02-09 15:49 | Progress Note ---
Assessment and Plan Assessment and plan: --Hypertensive emergency Current Visit: Yes Status: Acute Systolic blood pressure very high, I resumed patient's home losartan IV labetalol as needed, hydralazine, P.o. metoprolol and nifedipine We will closely monitor the patient and Adjust as needed Patient has headache; will check CT brain without contrast --Chest pain; Current Visit: Yes Status: Acute Probably secondary to uncontrolled hypertension Set of cardiac enzymes, morphine EKG, metoprolol EKG; no acute ST-T changes LVH Consider cardiology evaluation if no improvement -- Symptomatic anemia Current Visit: Yes Status: Acute Patient received 2 units of PRBC transfusion Significantly improved Hb7.1 - 14 today Stool for occult blood negative Patient gives remote history of menorrhagia Advised to see private field reimbursement manager upon discharge Patient has no bleeding . --Urinary tract infection Current Visit: Yes Status: Acute On IV Rocephin pending cultures Supportive care, follow cultures --Morbid obesity BMI 51.6 Current Visit: Yes Status: Acute Patient strongly advised diet modification exercise as tolerated and weight reduction, When medically stable Patient also need outpatient sleep study with pulmonary upon discharge -- DVT prophylaxis Current Visit: Yes Status: Acute Plan to address problem: On heparin and GI prophylaxis We will closely monitor the patient and adjust management as needed Plan of care reviewed with the patient and her nurse. History Interval history: Seen and examined the patient at the bedside Patient's chart medications reviewed Patient complains of some headache Uncontrolled blood pressures Received blood transfusion with significant improvement of H&H Planning to discharge the patient initially as patient was stable However she suddenly developed headache and uncontrolled blood pressures Also complains of some chest pain Hospitalist Physical - Constitutional Vitals: Temp Pulse Resp BP Pulse Ox 98.1 F 90 20 192/91 98 02/09/21 11:40 02/09/21 15:25 02/09/21 11:40 02/09/21 15:25 02/09/21 15:25 General appearance: Present: no acute distress, well-nourished - EENT Eyes: Present: PERRL, EOM intact - Neck Neck: Present: supple, normal ROM - Respiratory Respiratory effort: normal Respiratory: bilateral: diminished, negative: rales, rhonchi, wheezing - Cardiovascular Rhythm: regular Heart Sounds: Present: S1 & S2 - Extremities Extremities: no ischemia, No edema - Abdominal General gastrointestinal: soft, non-tender, non-distended, normal bowel sounds - Integumentary Integumentary: Present: clear, warm - Psychiatric Psychiatric: appropriate mood/affect, cooperative - Neurologic Neurologic: CNII-XII intact, moves all extremities HEART Score - HEART Score EKG: Non-specific Age: 45-65 Risk factors: 1-2 risk factors Troponin: Troponin T < 0.010 ng/mL (0.00-0.029) 02/08/21 14:55 Troponin: < normal limit Results - Labs CBC & Chem 7: 02/09/21 04:58 02/09/21 04:58 Labs: Laboratory Last Values WBC 9.9 K/mm3 (4.5-11.0) 02/09/21 04:58 RBC 5.16 M/mm3 (3.65-5.03) H 02/09/21 04:58 Hgb 14.0 gm/dl (10.1-14.3) D 02/09/21 04:58 Hct 41.3 % (30.3-42.9) D 02/09/21 04:58 MCV 80 fl (79-97) 02/09/21 04:58 MCH 27 pg (28-32) L 02/09/21 04:58 MCHC 34 % (30-34) 02/09/21 04:58 RDW 18.3 % (13.2-15.2) H 02/09/21 04:58 Plt Count 290 K/mm3 (140-440) 02/09/21 04:58 Lymph % (Auto) 29.1 % (13.4-35.0) 02/09/21 04:58 [place] % (Auto) 11.2 % (0.0-7.3) H 02/09/21 04:58 Eos % (Auto) 1.8 % (0.0-4.3) 02/09/21 04:58 Baso % (Auto) 1.0 % (0.0-1.8) 02/09/21 04:58 Lymph # (Auto) 2.9 K/mm3 (1.2-5.4) 02/09/21 04:58 [place] # (Auto) 1.1 K/mm3 (0.0-0.8) H 02/09/21 04:58 Eos # (Auto) 0.2 K/mm3 (0.0-0.4) 02/09/21 04:58 Baso # (Auto) 0.1 K/mm3 (0.0-0.1) 02/09/21 04:58 Seg Neutrophils % 56.9 % (40.0-70.0) 02/09/21 04:58 Seg Neutrophils # 5.6 K/mm3 (1.8-7.7) 02/09/21 04:58 PT 12.8 Sec. (12.2-14.9) 02/08/21 13:09 INR 0.91 (0.87-1.13) 02/08/21 13:09 APTT 25.9 Sec. (24.2-36.6) 02/08/21 13:09 Sodium 137 mmol/L (137-145) 02/09/21 04:58 Potassium 4.0 mmol/L (3.6-5.0) 02/09/21 04:58 Chloride 101.0 mmol/L (98-107) 02/09/21 04:58 Carbon Dioxide 23 mmol/L (22-30) 02/09/21 04:58 Anion Gap 17 mmol/L 02/09/21 04:58 BUN 17 mg/dL (7-17) 02/09/21 04:58 Creatinine 0.8 mg/dL (0.6-1.2) 02/09/21 04:58 Estimated GFR > 60 ml/min 02/09/21 04:58 BUN/Creatinine Ratio 21 % 02/09/21 04:58 Glucose 121 mg/dL (65-100) H 02/09/21 04:58 POC Glucose 80 mg/dL (70-105) 02/09/21 12:20 Calcium 8.9 mg/dL (8.4-10.2) 02/09/21 04:58 Magnesium 2.00 mg/dL (1.7-2.3) 02/08/21 13:09 Iron 38 ug/dL (37-170) 02/09/21 07:50 TIBC 302 mcg/dL (250-450) 02/09/21 07:50 % Saturation 12.58 % 02/09/21 07:50 Transferrin 247 mg/dl (192-382) 02/09/21 07:50 Total Bilirubin 0.30 mg/dL (0.1-1.2) 02/09/21 04:58 Direct Bilirubin < 0.2 mg/dL (0-0.2) 02/08/21 13:09 Indirect Bilirubin 0.3 mg/dL 02/08/21 13:09 AST 21 units/L (5-40) 02/09/21 04:58 ALT 17 units/L (7-56) 02/09/21 04:58 Alkaline Phosphatase 54 units/L (35-129) 02/09/21 04:58 Troponin T < 0.010 ng/mL (0.00-0.029) 02/08/21 14:55 NT-Pro-B Natriuret Pep 146.6 pg/mL (0-900) 02/08/21 13:09 Total Protein 7.7 g/dL (6.3-8.2) 02/09/21 04:58 Albumin 3.1 g/dL (3.9-5) L 02/09/21 04:58 Albumin/Globulin Ratio 0.7 % 02/09/21 04:58 Vitamin B12 704.7 pg/mL (211-911) 02/09/21 07:50 HCG, Qual Negative (Negative) 02/08/21 13:09 Urine Color Straw (Yellow) 02/08/21 11:56 Urine Turbidity Clear (Clear) 02/08/21 11:56 Urine pH 7.0 (5.0-7.0) 02/08/21 11:56 Ur Specific [place] 1.008 (1.003-1.030) 02/08/21 11:56 Urine Protein 100 mg/dl mg/dL (Negative) 02/08/21 11:56 Urine Glucose (UA) Neg mg/dL (Negative) 02/08/21 11:56 Urine Ketones Neg mg/dL (Negative) 02/08/21 11:56 Urine Blood Mod (Negative) 02/08/21 11:56 Urine Nitrite Neg (Negative) 02/08/21 11:56 Urine Bilirubin Neg (Negative) 02/08/21 11:56 Urine Urobilinogen < 2.0 mg/dL (<2.0) 02/08/21 11:56 Ur Leukocyte Esterase Tr (Negative) 02/08/21 11:56 Urine WBC (Auto) 24.0 /HPF (0.0-6.0) H 02/08/21 11:56 Urine RBC (Auto) 1.0 /HPF (0.0-6.0) 02/08/21 11:56 U Epithel Cells (Auto) < 1.0 /HPF (0-13.0) 02/08/21 11:56 Blood Type B POSITIVE 02/08/21 14:55 Antibody Screen Negative 02/08/21 14:55 Crossmatch See Detail 02/08/21 14:55 Microbiology: Microbiology 02/08/21 14:45 Stool Stool Occult Blood (KRISTY) - Final Anne/IV: Voiding Method Toilet Active Medications - Current Medications Current Medications: Generic Name Dose Route Start Last Admin Trade Name Freq PRN Reason Stop Dose Admin Acetaminophen 650 mg 02/08/21 17:13 02/09/21 00:26 Acetaminophen 325 Mg Tab PO 650 mg Q4H PRN Administration Pain MILD(1-3)/Fever >100.5/ALCALA Acetaminophen 650 mg 02/08/21 20:57 Acetaminophen 325 Mg Tab PO Q4H PRN Pain MILD(1-3)/Fever >100.5/ALCALA Hydralazine HCl 10 mg 02/09/21 12:43 Hydralazine 20 Mg/1 Ml Inj IV Q4HR PRN Hypertension Hydralazine HCl 25 mg 02/09/21 22:00 Hydralazine 25 Mg Tab PO Q8HR ASHLEE Hydromorphone HCl 0.5 mg 02/08/21 17:13 Hydromorphone 1 Mg/1 Ml Inj IV Q3H PRN Pain , Severe (7-10) Sodium Chloride 1,000 mls @ 42 mls/hr 02/08/21 17:15 02/09/21 06:33 Nacl 0.9% 1000 Ml IV 42 mls/hr DIRECT ASHLEE Administration Ceftriaxone Sodium 1 gm in 50 mls @ 100 mls/hr 02/09/21 08:00 02/09/21 07:56 Rocephin/Ns 1 Gm/50 Ml IV 02/14/21 07:59 100 mls/hr Q24H ASHLEE Administration Protocol Labetalol HCl 20 mg 02/09/21 15:40 Labetalol 20 Mg/4 Ml Inj IV 02/09/21 15:41 ONCE ONE Labetalol HCl 100 mg 02/09/21 22:00 Labetalol 100 Mg Tab PO Q8HR ASHLEE Losartan Potassium 100 mg 02/09/21 10:00 02/09/21 09:30 Losartan 50 Mg Tab PO 100 mg QDAY ASHLEE Administration Metoclopramide HCl 10 mg 02/08/21 17:13 Metoclopramide 10 Mg/2 Ml Inj IV Q6H PRN Nausea And Vomiting Morphine Sulfate 2 mg 02/08/21 17:13 Morphine 2 Mg/1 Ml Inj IV Q4H PRN Pain, Moderate (4-6) Ondansetron HCl 4 mg 02/08/21 20:57 Ondansetron 4 Mg/2 Ml Inj IV Q8H PRN Nausea And Vomiting Oxycodone/Acetaminophen 1 tab 02/08/21 17:13 02/09/21 13:49 Oxycodone /Acetaminophen 5-325mg Tab PO 1 tab Q6H PRN Administration Pain, Moderate (4-6) Sodium Chloride 10 ml 02/08/21 22:00 02/09/21 11:52 Sodium Chloride 0.9% 10 Ml Flush Syringe IV 10 ml BID ASHLEE Administration Sodium Chloride 10 ml 02/08/21 17:13 Sodium Chloride 0.9% 10 Ml Flush Syringe IV PRN PRN LINE FLUSH Sodium Chloride 10 ml 02/08/21 22:00 02/09/21 11:52 Sodium Chloride 0.9% 10 Ml Flush Syringe IV Not Given BID ASHLEE Sodium Chloride 10 ml 02/08/21 20:57 Sodium Chloride 0.9% 10 Ml Flush Syringe IV PRN PRN LINE FLUSH
[2021-02-09 16:34] LABS: Creatine Kinase MB < 1.0 ng/mL (0.0-4.0)
[2021-02-09] MEDS ORDERED: NIFEdipine XL 30 MG TAB PO ONE (17:00)
--- NOTE | 2021-02-09 18:47 | Cat Scan Report ---
CT head/brain wo con INDICATION: Hypertensive urgency / Headache. TECHNIQUE: Routine CT head without contrast. All CT scans at this location are performed using CT dos e reduction for ALARA by means of automated exposure control. COMPARISON: Head CT on 02/08/2021 FINDINGS: BRAIN / INTRACRANIAL CONTENTS: No acute hemorrhage, mass effect, midline shift, or hydrocephalus. No appreciable acute large territorial or lacunar infarct. No chronic infarct or focal atrophy. Normal b rain volume and ventricular/sulcal size for age. ORBITS: No significant abnormality of visualized orbits. SINUSES / MASTOIDS: No significant abnormality of visualized sinuses and mastoid air cells. ADDITIONAL FINDINGS: None. IMPRESSION: 1. No acute intracranial abnormality. Signer Name: Abhijeet Corral MD Signed: 02/09/2021 6:43 PM Workstation Name: [id number]
[2021-02-09] MEDS: hydrALAZINE 25 MG TAB PO SCH (23:12)
[2021-02-09] MEDS: METOPROLOL TARTRATE 25 MG TAB PO SCH (23:12)
[2021-02-09] MEDS: NIFEdipine XL 30 MG TAB PO SCH (23:12)
[2021-02-10] MEDS: hydrALAZINE 25 MG TAB PO SCH ×3 (06:02→13:30)
[2021-02-10 06:21] LABS: Alanine Aminotransferase 17 units/L (7-56); Albumin 3.4 g/dL (3.9-5); Blood Urea Nitrogen 11 mg/dL (7-17); Hemolysis Index 3
[2021-02-10 06:24] LABS: BUN/Creatinine Ratio 16
[2021-02-10] MEDS ORDERED: hydrALAZINE 20 MG/1 ML INJ IV ONE (07:00)
[2021-02-10] MEDS: oxyCODONE /ACETAMINOPHEN 5-325MG TAB PO PRN (07:53)
[2021-02-10] MEDS: cefTRIAXone/NS 1 GM/50 ML 1 GM/50 ML BAG IV SCH (09:28)
[2021-02-10] MEDS: NIFEdipine XL 30 MG TAB PO SCH (09:29)
[2021-02-10] MEDS: METOPROLOL TARTRATE 25 MG TAB PO SCH (09:29)
[2021-02-10] MEDS: LOSARTAN 50 MG TAB PO SCH (09:29)
[2021-02-10] MEDS ORDERED: hydroCHLOROthiazide 25 MG TAB PO SCH (10:00)
[2021-02-10 12:36] VITALS: BP 140/78
--- NOTE | 2021-02-11 10:49 | Electrocardiograph Report ---
[facility] Test Date: 2021-02-08 Test Time: 12:40:39 Pat Name: ISRAEL SCHERER Department: Room: A374 Gender: F Senior Counsel Commercial: Mike : 1970 Requested By: ASHANTI LOU Order Number: [id number] Reading MD: Reji Chaudhary Measurements Intervals [place] Rate: 62 P: 54 NM: 182 QRS: 59 QRSD: 95 T: 28 QT: 411 QTc: 418 Interpretive Statements Sinus rhythm Probable left ventricular hypertrophy No previous ECG available for comparison Electronically Signed On 02-11-2021 10:49:00 EDT by Reji Chaudhary
--- NOTE | 2021-02-11 10:59 | Electrocardiograph Report ---
[facility] Test Date: 2021-02-09 Test Time: 15:15:51 Pat Name: ISRAEL SCHERER Department: Room: A374 1 Gender: F Practice Administrator: DAWOOD : 1970 Requested By: SHEREE MIRANDA Order Number: [id number] Reading MD: Reji Chaudhary Measurements Intervals [place] Rate: 87 P: 59 [place]: 175 QRS: 55 QRSD: 87 T: -1 QT: 374 QTc: 451 Interpretive Statements Sinus rhythm Biatrial enlargement Probable LVH with secondary repol abnrm Compared to ECG 02/08/2021 12:40:39 Electronically Signed On 02-11-2021 10:59:06 EDT by Reji Chaudhary
== END 2021-02-10 13:32 | disposition home or self-care (01) | DRG 812 ==
LOC: ED 11:22 → 3A 17:13 → OBSVTOIN 02-09 16:33
PROVIDERS: ADMIT Internal Medicine; ATTEND Internal Medicine
PROC: 30233N1 Transfusion of Nonautologous Red Blood Cells into Peripheral Vein, Percutaneous Approach (ICD-10-PCS; principal; 2021-02-08)
DX: D64.9 Anemia, unspecified (principal); N39.0 Urinary tract infection, site not specified; I16.1 Hypertensive emergency; Z68.43 Body mass index [BMI] 50.0-59.9, adult; I10 Essential (primary) hypertension; E11.9 Type 2 diabetes mellitus without complications; Z20.822 Contact with and (suspected) exposure to COVID-19; E86.0 Dehydration; E66.01 Morbid (severe) obesity due to excess calories
CPT/HCPCS: 36415; 70450; 71046; 80048; 80053; 80076; 81001; 82271; 82550; 82553; 82607; 82747; 82962; 83550; 83735; 83880; 84484; 84703; 85025; 85610; 85730; 86850; 86900; 86901; 86920; 87086; 93005; G0378; J0360; J0696; J1200; J2405; J2765; J7030; J7040; P9016